=== PATIENT | male | born 1970 | race Caucasian/White ===

== ENCOUNTER 2021-05-01 12:12 | Emergency (ER) | payer OTHER ==
[~2021-05-01] VITALS: Ht 175.3 cm; Wt 77.7 kg
[2021-05-01 12:25] VITALS: BP 172/107
--- NOTE | 2021-05-01 12:29 | NUR ---
manager community relations: pt drinking fluisd in triage, advised to be NPO
[2021-05-01] MEDS ORDERED: LIDOCAINE-MPF 1%, 5ML INFIL ONE (12:30)
[2021-05-01] MEDS ORDERED: LIDOCAINE-MPF 1%, 5ML ONE (13:43)
--- NOTE | 2021-05-01 13:43 | NUR ---
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
[2021-05-01] MEDS ORDERED: BACITRACIN ZINC OINT 500U/GM, 0.9 GM ONE (14:06)
== END 2021-05-01 14:17 | disposition home or self-care (01) ==
LOC: ED 12:30
DX: S61.412A Laceration without foreign body of left hand, initial encounter (principal); X58.XXXA Exposure to other specified factors, initial encounter; Y93.89 Activity, other specified; Y92.009 Unspecified place in unspecified non-institutional (private) residence as the place of occurrence of the external cause; Y99.8 Other external cause status
CPT/HCPCS: 12002; 99282